=== PATIENT | female | born 1950 | race Caucasian/White ===

== ENCOUNTER → 2018-04-06 | Outpatient (CLI) | payer OTHER, MEDICARE | LOC: FIMAGING 20:26 | PROVIDERS: ATTEND Orthopaedic Surgery Orthopaedic Surgery of the Spine | DX: M51.34 Other intervertebral disc degeneration, thoracic region (principal); Z98.1 Arthrodesis status ==

== ENCOUNTER → 2018-09-01 | Outpatient (CLI) | payer OTHER, MEDICARE | LOC: FIMAGING 10:57 ==

== ENCOUNTER → 2018-09-06 | Outpatient (CLI) | payer OTHER, MEDICARE | LOC: BMCIMAGING 15:06 ==